=== PATIENT | male | born 1965 | race Caucasian/White ===

== ENCOUNTER 2019-05-28 10:27 | Emergency (ER) | payer SELFPAY ==
[~2019-05-28] VITALS: Ht 162.6 cm; Wt 87.0 kg
[~2019-05-28 10:27] MED LIST: LORA1TAB PO
[2019-05-28 10:35] VITALS: Ht 162.6 cm; Wt 87.0 kg
[2019-05-28] MEDS ORDERED: LORAZEPAM 1 MG TAB PO ONE (11:00)
[2019-05-28 11:54] VITALS: BP 152/79; PULSE 67; RESP 18
== END 2019-05-28 11:54 | disposition home or self-care (01) ==
LOC: FTE 10:27
DX: F41.9 Anxiety disorder, unspecified (principal)
CPT/HCPCS: 93005